=== PATIENT | female | born 1965 | race Caucasian/White ===

== ENCOUNTER → 2020-06-14 | Outpatient (CLI) | payer BC ==
--- NOTE | 2020-06-14 11:35 | KCIC ---
EXAM: Bilateral screening mammogram. HISTORY: 55-year-old female presents for screening mammography. TECHNIQUE: Full-field digital craniocaudal and mediolateral oblique views of both breasts are obtaine d for evaluation. Computer aided detection was applied. COMPARISON: 03/08/2008 BREAST PARENCHYMAL DENSITY: Level B - Scattered fibroglandular densities. FINDINGS: There is a small nodular asymmetry within the central inferior aspect of the left breast at mid depth in the mediolateral projection. There is no convincing correlate in the craniocaudal proje ction. There are additional areas of asymmetry and nodularity which are stable in appearance. There i s no suspicious calcification or architectural distortion. IMPRESSION: BI-RADS Category 0: Incomplete. Additional imaging needed. RECOMMENDATION: Further evaluation with a spot compression mediolateral oblique view and full-field t rue lateral view of the left breast to assess nodularity within the inferior medial aspect of the leonid ast is recommended. Sonographic imaging can also be performed if deemed indicated based on additional mammographic findings. If your mammogram demonstrates that you have dense breast tissue, which could hide abnormalities, and if you have other risk factors for breast cancer that have been identified, you might benefit from s upplemental screening tests that may be suggested by your ordering physician. Dense breast tissue, i n and of itself, is a relatively common condition. This information is not provided to cause undue c oncern, but rather to raise your awareness and to promote discussion with your physician regarding th e presence of other risk factors, in addition to dense breast tissue. A report of your mammography re sults will be sent to you and your physician. You should contact your physician if you have any ques tions or concerns regarding this report. Mammography is a sensitive method for finding small breast cancers, but it does not detect them all a nd is not a substitute for careful clinical examination. A negative mammogram does not negate a clin ically suspicious finding and should not result in delay in biopsying a clinically suspicious abnorma lity. PQRS compliance statement - Patient information was entered into a reminder system with a target due date for the next mammogram. "Our facility is accredited by the [employer] Mammography [employer]." Electronically signed by: Toshia Feliciano MD (06/14/2020 11:32 AM) [email or web address]
== END ==
LOC: KCIC MAMMO 07:53
PROVIDERS: ATTEND Family Medicine
DX: Z12.31 Encounter for screening mammogram for malignant neoplasm of breast (principal); N64.89 Other specified disorders of breast
CPT/HCPCS: 77067

== ENCOUNTER → 2020-07-10 | Outpatient (CLI) | payer BC ==
--- NOTE | 2020-07-10 11:25 | KCIC ---
Left breast diagnostic digital mammograms: Reason for examination: Nodule on screening mammogram. Comparison is made to mammographic exam dated 06/14/2020. True lateral and coned compression views in CC, lateral and oblique projections were obtained. There is a small circumscribed nodular density which appears to be at the 3:00 position 8 cm from the nipple. Further evaluation with ultrasound will follow. IMPRESSION: Small circumscribed lesion at the 3:00 position 8 cm from the nipple. Ultrasound to follow. BI-RADS Category 0: Incomplete. Needs additional imaging evaluation. Left breast ultrasound: Ultrasound examination was performed of the lateral left breast and at the left axilla. At the 3:00 position 8 cm from the nipple, there is a hypoechoic circumscribed lesion in parallel celina entation measuring approximately 13.5 mm in greatest dimension. This would correspond with the area o f mammographic concern in the appearance suggests a small fibroadenoma. No suspicious nodules are see n. No abnormal appearing lymph nodes are seen in the axilla. 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 Recommend 6 month follow-up with [facility]. BI-RADS Category 3: Probably Benign. "Our facility is accredited by the [employer] Mammography [employer]." This patient's information has been entered into a reminder system for the patient to be notified wit h the results of her examination and a target date for the next mammogram. Electronically signed by: Almaz Pelayo MD (07/10/2020 11:23 AM) [email or web address]
== END ==
LOC: KCIC MAMMO 07:51
PROVIDERS: ATTEND Family Medicine
DX: R92.8 Other abnormal and inconclusive findings on diagnostic imaging of breast (principal); N63.21 Unspecified lump in the left breast, upper outer quadrant
CPT/HCPCS: 76641; 77065

== ENCOUNTER → 2021-01-14 | Outpatient (CLI) | payer BC ==
--- NOTE | 2021-01-14 15:20 | KCIC ---
Left breast ultrasound: Reason for examination: Follow-up nodule. Comparison is made to previous study dated 07/10/2020. Ultrasound examination of the left breast and axilla was performed. At the 3:00 position 8 cm from the nipple, there continues be a hypoechoic circumscribed lesion in pa rallel orientation probably representing a fibroadenoma measuring 1.5 cm in greatest dimension which has shown no significant interval change. No other cystic or solid nodules are seen. No abnormal appe aring lymph nodes are seen in the axilla. IMPRESSION: Nodule consistent with fibroadenoma at the 3:00 position without significant change evident. Recommen d continued 6 month follow-up with left breast ultrasound at the time of bilateral mammograms. BI-RADS Category 3: Probably Benign. "Our facility is accredited by the [employer] Mammography [employer]." This patient's information has been entered into a reminder system for the patient to be notified wit h the results of her examination and a target date for the next mammogram. Electronically signed by: Almaz Pelayo MD (01/14/2021 3:18 PM) [email or web address]
== END ==
LOC: KCIC US 07:55
PROVIDERS: ATTEND Family Medicine
DX: Z09 Encounter for follow-up examination after completed treatment for conditions other than malignant neoplasm (principal); R92.8 Other abnormal and inconclusive findings on diagnostic imaging of breast
CPT/HCPCS: 76641

== ENCOUNTER → 2021-09-04 | Outpatient (CLI) | payer BC ==
--- NOTE | 2021-09-04 10:56 | KCIC ---
DIAGNOSTIC BILATERAL 2-D MAMMOGRAM AND TARGETED LEFT BREAST ULTRASOUND INDICATION: Follow-up for probably benign left breast mass. COMPARISON: Mammograms from 06/14/2020 and 03/08/2008. Left breast ultrasounds from 01/14/2021 and 2020. FINDINGS MAMMOGRAM: Again seen is an oval circumscribed mass on the left MLO view slightly inferior t o the nipple line are at middle depth (7 cm from the nipple). This measures 9 mm maximum dimension an d has not changed since the June 2020 mammogram. There is a very small oval circumscribed mass in the upper left breast seen on the MLO view about 11 cm from the nipple. There is a small area of nod ularity in the left retroareolar region slightly medial to the nipple. No suspicious right breast mas s, malignant appearing calcifications, or architectural distortion is seen. FINDINGS TARGETED LEFT BREAST ULTRASOUND: The area concern on previous ultrasounds was imaged. A discrete mass cannot be visualized in the 3:00 position, 8 cm from the nipple. There is some hypoechoic tissue adjacent to the pectoralis muscle in this location. No left axillary adenopathy is seen. IMPRESSION: The bilateral 2-D mammogram shows no significant change since June 2020. There are pr obably benign masses in the left breast with the largest measuring 9 mm. Today's ultrasound does not demonstrate a discrete mass in the area previously noted mass at 3:00, 8 cm from the nipple. Follow-up of left breast masses with a diagnostic 3-D mammogram in 6 months is recommended. Results were given to the patient at time of examination. Patient information will be entered into [facility] mammography reminder system with a target recall date for her next mammogram. Electronically signed by: Arlei Vasquez MD (09/04/2021 10:54 AM) [email or web address]
== END ==
LOC: KCIC MAMMO 07:59
PROVIDERS: ATTEND Family Medicine
DX: N63.20 Unspecified lump in the left breast, unspecified quadrant (principal)
CPT/HCPCS: 76641; 77066